=== PATIENT | female | born 2000 ===

== ENCOUNTER 2023-03-09 10:44 | Outpatient (CLI) | payer OTHER, MEDICAID, SELFPAY | END 2023-03-09 10:45 | disposition home or self-care (01) | PROVIDERS: Visit Provider Advanced Practice Midwife | DX: Z34.93 Encounter for supervision of normal pregnancy, unspecified, third trimester (principal) | CPT/HCPCS: 86592 ==

== ENCOUNTER 2023-04-20 14:57 | Outpatient (CLI) | payer OTHER, SELFPAY ==
--- NOTE | 2023-04-20 15:00 | CRLHL7_ITS ---
For Patients: As a result of the Century Cures Act, medical imaging exams and procedure reports are released immediately into your electronic medical record. You may view this report before your referring provider. If you have questions, please contact your health care provider. OB ULTRASOUND FOLLOWUP 04/20/2023 THIEN by LMP: _05/28/2023. GA: _34 w, 4d. Single. INDICATION: Followup growth. Size < dates. CERVIX: Not visualized. POSITIONING: Vertex. AMNIOTIC FLUID: 5.3 cm. PLACENTA: Technique: Transabdominal. PLACENTA POSITION: Anterior. DOPPLER: heart rate: 149 bpm. Biometry: BPD: 8.3 cm. 33 w, 3 d, 18 percent. HC: 30.0 cm. 33 w, 2 d, <3 percent. AC: 30.6 cm. 34 w, 4 d, 54 percent. FL: 6.1 cm. 31 w, 4 d, <3 percent. FL/AC ratio: 20 percent. HC/AC ratio: 1.0. EFW: 2197 g. Weight: 4 lbs, 13 oz. age by this US: 33 w, 4 d. THIEN by this US: 06/06/2023. Percentile by THIEN: 17 percent. IMPRESSION: Single live intrauterine gestation at 33 weeks 4 days. THIEN 06/06/2023. Estimated weight 2197 grams which lies at the 17th percentile. Ania Felipe M.D. Diagnostic/Breast Radiologist [email or web address] Transcribed: 12:36 pm DW/Dictated by: Ania Felipe MD @ 04/21/2023 7:39:00 AM (Electronically Signed)
== END 2023-04-20 14:58 | disposition home or self-care (01) ==
LOC: US 14:58
PROVIDERS: Visit Provider Advanced Practice Midwife
DX: O36.63X0 Maternal care for excessive fetal growth, third trimester, not applicable or unspecified (principal); Z3A.33 33 weeks gestation of pregnancy
CPT/HCPCS: 76816

== ENCOUNTER 2023-04-29 11:19 | Outpatient (CLI) | payer OTHER, SELFPAY ==
[2023-04-30 11:55] LABS: Strep B DNA Probe NEGATIVE (Negative)
[2023-04-30 12:09] LABS: Strep B Pen/Amox Allergy No
== END 2023-04-29 11:20 | disposition home or self-care (01) ==
PROVIDERS: Visit Provider Advanced Practice Midwife
DX: Z34.93 Encounter for supervision of normal pregnancy, unspecified, third trimester (principal); Z3A.35 35 weeks gestation of pregnancy
CPT/HCPCS: 82565; 82570; 84156; 84450; 84460; 87081; 87653

== ENCOUNTER 2023-05-13 11:14 | Outpatient (CLI) | payer OTHER, SELFPAY ==
--- NOTE | 2023-05-13 11:15 | CRLHL7_ITS ---
For Patients: As a result of the Cures Act, medical imaging exams and procedure reports are released immediately into your electronic medical record. You may view this report before your referring provider. If you have questions, please contact your health care provider. INDICATION: MEASURING SMALL FOR GESTATIONAL AGE TECHNIQUE: Real time nassar scale imaging of the fetus was performed. Doppler evaluation of the umbilical artery also performed. COMPARISON: 04/20/2023 FINDINGS: Sonographic imaging demonstrates a single living intrauterine gestation. Fetus demonstrates a regular cardiac rate of 149 beats per minute. Fetus has a vertex position. The placenta lies anteriorly. Amniotic fluid volume appears lower limits of normal and there is a single deepest pocket of 4.7 cm. HUBERT 8.9 cm. The estimated weight is 2453gm which lies at the 3rd %. On the prior OB ultrasound dated 04/20/2023 the estimated weight was at the 17th percentile. BPD, HC, FL less than 3rd percentile. AC 3rd percentile. Umbilical artery S/D ratio 2.5. Absent gross body movements, tone and respiratory activity. IMPRESSION: Biophysical profile 09/23. Ordering provider immediately notified by the teachers' assistant at 12 p.m. 05/13/2023. Sonographic gestational age 34 weeks 3 days and sonographic due date of 06/21/2023. Sonographic age 24 days behind the clinical age. Estimated weight 3rd percentile. BPD/HC/FL less than 3rd percentile. Abdominal circumference 3rd percentile. Dictated by Gavin Argueta MD @ 05/13/2023 12:32:24 PM (Electronically Signed)
== END 2023-05-13 11:15 | disposition home or self-care (01) ==
LOC: US 11:15
PROVIDERS: Visit Provider Advanced Practice Midwife
DX: O36.5930 Maternal care for other known or suspected poor fetal growth, third trimester, not applicable or unspecified (principal); Z3A.37 37 weeks gestation of pregnancy
CPT/HCPCS: 76816; 76819; 76820

== ENCOUNTER 2023-05-13 12:05 | Inpatient (IN) | payer OTHER, SELFPAY ==
[2023-05-13] VITALS (14 sets, daily range): BP systolic 102–139; BP diastolic 62–81; PULSE 61–120; RESP 16–18; TEMP 36.9–37.3; O2SAT 90–100; BMI 28.3
--- NOTE | 2023-05-13 12:34 | P.LDBA_ITS ---
Subjective History of Present Illness Narrative: Unique is being admitted to Labor and Delivery for induction of labor for severe IUGR, 3%ile. She is a 23 year old at 37 6/7 weeks gestation. She had a growth US today with IUGR in the 3rd percentile, normal dopplers with BPP 2/8, 410 with reactive NST. Patient partner, Tristan, is a tower truck driver and currently in [place]. He has been made aware and has plans to be on his way here. She desires to delay IOL until he is here. Her full history and physical was dictated by Cheryl Ortiz CNM on 05/06/2023. Please see this for details. Specific Issues/Plans Partner: Tristan H&P done 05/06/2023 by Cheryl Ortiz CNM 1. Hx depression, anxiety, and PTSD Has been on medications in past, none current no therapy declined at first visit ALISE: 12 PHQ 9: 13?on 11-09 2. Rubella Non immune needs vaccine PP 3. IUGR 3% at 37.6 weeks Measuring small for dates: Growth US at 34.4: 17%. Growth US at 37.6: 3% w/ BPP 2/8, IOL recommended today COVID: declines Flu: declines TDAP: Given 03/23/23 Records reviewed from [facility]: OB Labs 10/19/22:??? Blood type: O+, antibody screen negative.??? Hgb 12.6??? Platelets (234)??? Rubella: NON Immune RPR: non-reactive??? HBsAg: negative??? Hep C neg HIV: negative??? urine culture: mixed tim Pap (07/31/21): negative??? THIEN by LMP 05/28/23, confirmed by u/s NOB 10/19/22 -declined carrier and genetic screening 10/19/22 viability u/s. 8.3 weeks by LMP, 8.6 by u/s. 10/05/22 viability u/s. 6.3 weeks by LMP, 6.2 weeks by u/s. OB - Problem Based A/P Additional Plan (1) Encounter for induction of labor: Status: Acute (2) IUGR (intrauterine growth restriction) affecting care of mother: Status: Acute (3) Depression, major, recurrent: Status: Acute (4) PTSD (post-traumatic stress disorder): Status: Acute (5) Anxiety: Status: Acute Plan ASSESSMENT:? 23 at 37 6/7 weeks gestation? complicated by:?IUGR 3%ile (dx 05/13/2023) with BPP 4/10, depression/anxiety/PTSD, rubella non-immune Labor type: Induced, not in labor? Category 1 FHR pattern.?? Labor complicated by: IUGR GBS negative? ? PLAN:? 1. Routine intrapartum cares as ordered. Discussed cervical exam and likely cervical ripening vs pitocin. Patient prefers to wait for her significant other to arrive. Unless status changes, we will wait for him to arrive before starting IOL measures. 2. Monitoring per policy, continuous 3. Planning unmedicated . Desires water , not a candidate due to IUGR. Hep C negative. Candidate for analgesia of choice.?? 4. Patient encouraged to reposition and ambulate to promote physiologic labor and .? 5. Dr. Banks made aware of patient and plan. He agrees with plan. Peds made aware of patient and will plan to be in attendance for delivery. 6. Anticipate ? Delivery/Labor/Induction Plan Plan: induction OB Exam Physical Exam Vital signs: Pulse BP Pulse Ox 76 139/81 100 05/13/23 12:12 05/13/23 12:12 05/13/23 12:15 Narrative: Vitals Reviewed Constitutional:? Alert and oriented x3 HEENT:? Normocephalic, atraumatic Neck:? Supple Lungs:? Clear to auscultation bilaterally Heart:? Regular rate and rhythm, no murmur, rub or gallop Abdomen:? Soft, nontender, and gravid. Vertex by Dionicio's, confirmed with cervical exam. Extremities:? No edema or erythema Cervix: Deferred, will check once patient settled NST: 135 bpm/moderate variability/15x15 accelerations/no decelerations/irregular contractions, pt not feeling Detailed Labor and Delivery Exam Patient Gravid: Yes
[2023-05-13 13:01] LABS: Basophils Absolute Auto 0.03 K/uL (0.00-0.30); Basophils Percent Auto 0.3 % (0.0-3.0); Eosinophils Absolute Auto 0.08 K/uL (0.00-0.50); Eosinophils Percent Auto 0.9 % (0.0-7.0); Hematocrit 39.9 % (33.0-51.0); Hemoglobin* 13.1 gm/dL (12.0-16.0); Immature Granulocytes Abs Auto 0.05 K/uL (0.00-0.30); Immature Granulocytes Pct Auto 0.6 %; Lymphocytes Percent Auto 16.1 % (20-44); Mean Corpuscular HGB Conc 33 gm/dL (32-36); Mean Corpuscular Hemoglobin 27 pg (26-34); Mean Corpuscular Volume 84 fL (80-100); Monocytes Percent Auto 7.8 % (0.0-11.0); Neutrophils Percent Auto 74.3 % (42.0-72.0); Platelet Count* 201 K/uL (140-440); RDW Coefficient of Variation % 13.1 % (11.5-15.5); Red Blood Count 4.78 m/uL (4.00-5.20); White Blood Count* 9.09 K/uL (4.50-11.00)
[2023-05-13 13:02] LABS: Slide Review Reflex No
[2023-05-13] MEDS: miSOPROStoL 25 MCG/0.25 TABLET VAGINAL (18:31)
[2023-05-13] MEDS: LACTATED RINGERS 1000 ML 1,000 ML 1125 ML IV (22:08)
[2023-05-13] MEDS: LACTATED RINGERS 1000 ML 1,000 ML 125 ML IV (23:01)
--- NOTE | 2023-05-13 23:16 | PM.OBPNL ---
Subjective Date Seen: 05/13/23 Narrative: Unique is a at 37 5/7 weeks gestation. She is being induced for IUGR in the 3rd percentile with BPP of 2/8 or 4/10. She received a dose of cytotec at about 1830. Patient was resting when spontaneous deceleration was noted on monitor. RN at bedside with no notable return in FHR. CNM to bedside, no audible FHT. Patient positioned to hands and knees with intermittent FHR in the 50-70's were audible. Fluid bolus was started. Minerva palm called. MD notified, OR team called, and Peds called. Patient brought to OR, FHR slowly returned to 140's then to 160-180's. Prolonged deceleration of 8 minutes noted. Objective Vital Signs: Last Vital Signs Temp 99.1 F 05/13/23 18:29 Pulse 71 05/13/23 18:30 Resp 16 05/13/23 18:29 BP 138/62 05/13/23 18:30 Pulse Ox 100 05/13/23 22:37 Pelvic Exam Dilation (cm): 1 Plan Plan: Minerva palm called, remote from vaginal delivery. Dr. Banks at bedside and to assume care for section.
--- NOTE | 2023-05-13 23:47 | P.OBPRC_ITS ---
Procedure Time Seen by Provider: 23:47 Date of procedure: 05/13/23 Pre-op diagnosis: Prolonged heart deceleration, growth restriction Post-op diagnosis: same Procedure Done: Global Will [facility] bill your pro fee for this procedure?: Yes Blood Loss Measurement Type: EBL Bakri Used: No IV fluids (mL): 1,400 Urine Output (mL): 250 Surgeon: Fantasma Banks MD Anesthesia type: Spinal Findings: Viable female with Apgars of 8 and 9 at 1 and 5 minutes, weight of 5 lb 11 oz Normal fallopian tubes and ovaries bilaterally Procedure Name: Primary low-transverse section Procedure Description: Indication: Patient is a 23-year-old female G 1 P 0 at 37 weeks 6 days gestation who presented to [facility] Center under the care of the CN service for induction of labor secondary to new onset growth restriction less than 3rd percentile and nonreassuring status with BPP 4/10. Patient received misoprostol for cervical ripening however during this the heart rate had a spontaneous deceleration to 70 beats per minute for 8 minutes, followed by return to baseline. Given the diagnosis of growth restriction and likely placental insufficiency, further attempts toward vaginal delivery were deemed not to be safer fetus, and decision was made to proceed with delivery via C-se ction. We discussed the risks, benefits, and alternatives to the procedure including the following: Bleeding, infection, injury to other adjacent organs, VTE, injury to fetus. Patient's questions were answered and she provided written informed consent to proceed. Technique: Patient was taken to the operating room where she was placed in the dorsal supine position with a leftward tilt. Antibiotics including cefazolin were administered. A Jha catheter was placed in her bladder. Patient was then prepped and draped in the usual sterile fashion. The patient received spinal anesthesia which was noted to be adequate prior to skin incision. A 10 blade scalpel used to create a Pfannenstiel incision 2 cm superior to the pubic symphysis and carried through the subcutaneous tissue to the underlying fascia. The fascia was then incised in the midline, the subcutaneous fat cleared from the fascia along the length of the skin incision, and then the fascial incision extended laterally with digital finger fracture. The rectus abdominus muscles were in the midline with digital pressure and the peritoneum entered with blunt finger pressure. The entire incision was then extended with blunt pressure. Aplastic double ring retractor system was placed, and the anterior abdominal wall manually swept with no visceral organs palpated or entrapped by the ring. A 10 blade scalpel was used to create a low-transverse incision in the uterus superior to the bladder flap, and manual pressure applied to the cranial and caudal aspects of the incision for extension. The fetus was delivered atraumatically. The umbilical cord was clamped, cut, and the handed off to the pediatric care team for resuscitation. A section of cord was clamped and held for gases if needed. The placenta was delivered spontaneously with gentle traction on the umbilical cord and external massage of the uterus. A lap sponge was used to clear the uterine cavity of all clots and debris. The hysterotomy was examined and no extension noted. The hysterotomy was repaired with a running locked suture of 0 Vicryl. Hemostasis was noted. The remainder of the abdomen and pelvis was swept clear of all blood and clot, the pericolic gutters were bilaterally examined and noted to be free of fluid and clot. The plastic ring retractor was removed from the abdomen and a bladder blade placed to examine the hysterotomy, which remained hemostatic. The bladder flap and rectus muscles were examined and noted to be hemostatic. The fascial incision was closed with a running suture of 0 Vicryl. The subcutaneous tissue was less than 2 cm in depth and did not require reapproximation. Warm saline was used for irrigation and hemostasis of the subcutaneous tissue controlled with electrocoagulation. The skin incision was closed with a running subcuticular stitch of 4-0 Vicryl, Steri- Strips were placed over the incision, and a Mepilex bandage placed. External massage of the uterus was performed to clear the uterus and vagina of all blood and clot. Instrument, sponge, and needle counts were correct x2. The patient was transported to the room with for recovery in stable condition. EBL for the surgery was 467 mL. Complications: None Condition: stable Disposition: floor OB Delivery Proc Additional Procedures Tubal Ligation at the time of : No Other: No
--- NOTE | 2023-05-13 23:53 | P.OBCN_ITS ---
OB - CN: HPI Date of Consult Time Seen by Provider: 22:30 Date Seen: 05/13/23 Patient: [facility] Patient Consult date: 05/13/23 Requesting Physician: Edelmira Edward CNM Primary Care Provider: Not a Local Provider Consult Narrative Reason for consult: nonreassuring FHTs Narrative: The patient is a 23 year old G 1 P 0 at 37 weeks 6 days gestation that was admitted to the Center on 05/13/23 for induction of labor by the [facility] service secondary to new onset FGR less than 3% and BPP 4/10. Patient received misoprostol cervical ripening and at 2215 had a spontaneous heart rate deceleration to 70 beats per minute for 8 minutes, followed by recovery. During this time, a code white was called and patient was transferred to the OR in preparation for possible emergency delivery. Upon my arrival, the heart rate was back to normal baseline. History of Present Dating criteria: based on LMP care: good care Ultrasounds: normal 1st trimester US and normal mid trimester US complications comment: growth restriction at 3rd percentile Medical Complications: History of major depression, anxiety History History 1 Elective abortions 0 Para 1 Spontaneous abortions 0 Hx # Term Pregnancies 0 Ectopic pregnancies Hx # Pregnancies 0 Multiple births Number of Living Children 0 Labs Blood type: O (+) positive Rubella: immune RPR/VDLR: nonreactive GBS status: negative HBsAG: negative OB Labs: Lab Assessment Start: 05/13/23 12:16 Freq: ONCE Status: Active Protocol: PC.OBGBS Activity Type Activity Date Activity User E-sign Co-sign Detail Recorded Client Recorded Date Recorded By Document 05/13/23 12:57 MMB [id number] 05/13/23 12:58 MMB 05/13/23 12:57 Lab Assessment GBS Status negative GBS Additional Criteria None No Treatment Needed OK Are Labs Available Yes Maternal Blood Type O Maternal RH Factor Positive Evaluate Maternal Rubella Immune Status Non-Immune Hepatitis B Surface Antigen Negative Maternal HIV Status Negative Maternal Syphillis (RPR) Status Negative Review of Systems Status of ROS: Reports: 6 or more systems reviewed and unremarkable except as noted in History and below [facility] Medical History Syncope ?R55 - Syncope and collapse (ICD-10) Surgical History [place] teeth extracted ?K08.409 - Partial loss of teeth, unspecified cause, unspecified class (ICD- 10) Family History Mother Thyroid disease Father Acute rheumatic arthritis Sister Gastrointestinal complaints Social History What is your current living situation?: I presently have a place to live Problems where you live: no known problems In the past 12 months, utilities in danger of being shut off: no In past 12 months, lack of transportation kept you from medical appts, meetings, work, or getting things needed for daily living: no In the past 12 mos, have been you worried that your food would run out before you had money to buy more?: never true In the past 12 mos, the food you bought just didn't last and you didn't have mon ey to buy more?: never true Smoking Status: Former smoker How often does anyone, including family, friends and others, physically hurt you : never How often does anyone, including family, friends and others, insult or talk down to you: never How often does anyone, including family, friends and others, threaten you with harm: never How often does anyone, including family, friends and others, scream or curse at you: never Little interest or pleasure in doing things: several days Feeling down, depressed, or hopeless: more than half the days Meds Home Medications and Allergies Home Medications Medication Instructions Recorded Confirmed Type prenat.vits,braden,nez-poxi-wjiab 1 tab PO QDAY 11/09/22 05/13/23 History promethazine 25 mg tablet 25 mg PO Q6H PRN 11/09/22 05/13/23 History Allergies Allergy/AdvReac Type Severity Reaction Status Date / Time amoxicillin Allergy Mild Headache Verified 05/13/23 10:56 citalopram Allergy Mild Headache Verified 05/13/23 10:56 ibuprofen Allergy Mild Unknown Verified 05/13/23 10:56 Penicillins Allergy Mild Rash Verified 05/13/23 10:56 OB - H&P: Exam Physical Exam: Vital signs: Temp Pulse Resp BP Pulse Ox 99.1 F 71 16 138/62 100 05/13/23 18:29 05/13/23 18:30 05/13/23 18:29 05/13/23 18:30 05/13/23 22:37 Constitutional: Constitutional: moderate distress and cooperative Routine Abdominal Exam: Abdominal: Present soft; Absent guarding or tenderness Comments: Gravid uterus Detailed Labor and Delivery Exam: Patient Gravid: Yes Dilation (cm): 0 Effacement (%): 30 Cervix position: mid Consistency: medium Tachysystole: No Contraction intensity: Mild Fetus (Single): Station: -2 Amniotic Membrane Status: intact Heart Rate Baseline: 160 Monitor Accelerations: Absent Monitor Decelerations: Prolonged Insurance Sales Specialist Variability: Moderate (6-25) OB - Results Labs Labs: Short CBC 05/13/23 Range/Units 12:55 WBC 9.09 (4.50-11.00) K/uL Hgb 13.1 (12.0-16.0) gm/dL Hct 39.9 (33.0-51.0) % Plt Count 201 (140-440) K/uL OB - CN: A/P Assessment and Plan (1) Encounter for induction of labor: Status: Acute (2) IUGR (intrauterine growth restriction) affecting care of mother: Status: Acute (3) Depression, major, recurrent: Status: Acute (4) PTSD (post-traumatic stress disorder): Status: Acute (5) Anxiety: Status: Acute (6) Prolonged heart deceleration: Status: Acute Assessment and Plan: Discussed risk for recurrence and risk to the fetus of hypoxia, given FGR and remote from delivery status, recommend proceeding with delivery via section at this time.
[2023-05-14] VITALS (39 sets, daily range): BP systolic 90–151; BP diastolic 49–90; PULSE 55–76; RESP 16–18; TEMP 36.3–37.1; O2SAT 97–100
--- NOTE | 2023-05-14 | P.ANES_ITS ---
Anesthesia Charges Start Date/Time Anesthesia Start Date: 05/13/23 Anesthesia Start Time: 22:15 Stop Date/Time Anesthesia Stop Date: 05/13/23 Anesthesia Stop Time: 23:50 Summary Emergency: [employer]
--- NOTE | 2023-05-14 | P.NB_ITS ---
Nerve Block Nerve Block Time Seen by Provider: 23:45 Date Seen: 05/13/23 Type of block requested by surgeon for post-operative analgesia: TAP Side: bilateral Time out performed: Yes Verification of patient name: Yes Verification of date of : Yes Site marking: site marked Name of person performing procedure: Jorge Maurice Continuous monitoring Was continuous monitoring of O2 sat, B/P, ekg monitor tech, recorded every 15 minutes?: Yes Procedure Checklist: sterile prep, needles and gloves Ultrasound guided. Images saved: Yes Medications given in 5ml increments after negative aspiration: Marcaine %: 0.25 mL: 30 Needle gauge: 20 and Exparel mL: 10 Needle gauge: 20 Patient tolerated procedure well: Yes Additional comments: Injected in 5ml increments after negative aspiration Block Charges Block Charge (with Pro Fee): TAP Bilateral Use of Ultrasound Machine for Block: Yes- US Guidance/pain block
[2023-05-14] MEDS: OXYTOCIN 30 unit/500 ML in NS 30 UNIT/500 ML BAG 300 UNIT IVPB (02:28)
[2023-05-14] MEDS: ACETAMINOPHEN INJ 1,000 MG/100 ML VIAL 400 MG IVPB (03:12)
[2023-05-14 07:08] LABS: Hemoglobin* 10.5 gm/dL (12.0-16.0)
[2023-05-14] MEDS: LANOLIN CREAM 1 APPLIC TOPICAL (07:27)
--- NOTE | 2023-05-14 08:12 | PM.OBPNVD1 ---
OB - PN:Subj Subjective Time Seen by Provider: 08:12 Date Seen: 05/14/23 Interval history: Unique is a 23 y.o. who was admitted to L & D for IOL for severe IUGR and BPP 09/23.? She had an primary emergency for intolerance of labor.? ? ? Narrative: The patient feels well.? The pain is mostly controlled with current medications, states it is better when she is not moving.? She has no new complaints.? She is breast feeding and reports things are going well.? the patient has done well.? Vitals have been stable.? She has remained afebrile.? Has a good appetite, is tolerating a general diet.? Her garcia catheter has not yet been removed this AM.? She is passing gas and has not had a bowel movement.? She is ambulating and denies any dizziness.? Has Small amount of rubra lochia.? OB - PN: Obj Exam Physical Exam: Vital signs: Temp Pulse Resp BP Pulse Ox 98.4 F 57 L 16 127/73 100 05/14/23 02:30 05/14/23 02:30 05/14/23 06:40 05/14/23 02:30 05/14/23 02:30 Narrative: VSS.? Afebrile? GENERAL APPEARANCE:? Somewhat flat affect, but does also appear and states she is tired, alert, no distress? MOOD:? appropriate? HEENT: normocephalic, neck supple, full ROM? CHEST:? Symmetrical chest wall movement.? Normal respiratory effort.? Clear to auscultation? HEART:? regular rate and rhythm? ABDOMEN:? soft, non-tender. Uterine fundus is firm, 1 below Umbilicus, Midline and is appropriate for the stage of recovery.? Bowel sounds present.? EXTREMITIES:? normal and trace edema? SKIN: warm, dry.? Dressing on, dry/intact. Small areas of shadowing noted and previously marked.? No signs of infection noted.? Urinary Catheter Management: garcia: Cath placed during this visit: yes Urethral indwelling: Yes Reason for continuing: surgical procedure Insertion date: 05/13/23 Insertion time: 10:47 OB - PN: Obj Data Labs Labs: Laboratory Results - last 24 hr 05/13/23 05/14/23 12:55 06:55 WBC 9.09 RBC 4.78 Hgb 13.1 10.5 L Hct 39.9 MCV 84 MCH 27 MCHC 33 RDW Coeff of Gabriela 13.1 Plt Count 201 Neut % (Auto) 74.3 H Lymph % (Auto) 16.1 L [place] % (Auto) 7.8 Eos % (Auto) 0.9 Baso % (Auto) 0.3 Neut # (Auto) 6.80 Lymph # (Auto) 1.50 [place] # (Auto) 0.70 Eos # (Auto) 0.08 Baso # (Auto) 0.03 Abs Immat Gran (auto) 0.05 Imm/Tot Granulo (auto) 0.6 Blood Type O Positive Antibody Screen NEGATIVE OB - PN: A/P Delivery Assessment and Plan (1) Status post primary low transverse section: Status: Acute (2) Lactating mother: Status: Acute (3) IUGR (intrauterine growth restriction) affecting care of mother: Status: Acute (4) Depression, major, recurrent: Status: Acute (5) PTSD (post-traumatic stress disorder): Status: Acute (6) Anxiety: Status: Acute Plan day: 1 Plan: routine care Comments: Assessment/Plan? G 1 P 1 status post uncomplicated primary .? ?? 1.? Continue route PP cares? 2.? .? May see if desired? 3.? Anticipate discharge home tomorrow or the following day per pt preference? 4.? Mild acute anemia.? 5. 1 elevated BP. Will continue to monitor, labs if they become elevated again. 6. Hx of anxiety, depression and PTSD. Increased risk for PP depression & anxiety, especially w/ emergency .
[2023-05-14] MEDS: ACETAMINOPHEN 500 MG TABLET 1000 MG PO ×3 (09:17→22:10)
[2023-05-14] MEDS: DOCUSATE SODIUM 100 MG CAPSULE PO (09:18)
--- NOTE | 2023-05-14 11:26 | PM.OBPNVD1 ---
OB - PN:Subj Subjective Time Seen by Provider: 11:26 Date Seen: 05/14/23 Interval history: Unique is a 23 y.o. who was admitted to L & D for IOL for severe IUGR and BPP 09/23.? She had an primary emergency for prolonged heart rate deceleration during induction process of cervical ripening.? ? Patient comments OB post-: no complaints, tolerating diet and flatus present [place] infant status: and doing well feeding status: exclusively Narrative: Patient reports getting some sleep overnight between feedings, but still tired this morning. Pain moderately controlled but will be difficult due to allergy to ibuprofen. Garcia in place and will be removed this morning and will she is tolerating a regular diet without nausea. She has been up out of bed. Denies any headache, chest pain, shortness of breath. OB - PN: Obj Exam Physical Exam: Vital signs: Temp Pulse Resp BP Pulse Ox O2 Del Method 98.2 F 76 16 112/70 97 Room Air 05/14/23 08:00 05/14/23 08:00 05/14/23 08:00 05/14/23 08:00 05/14/23 08:00 05/14/23 08:00 Constitutional: Constitutional: no acute distress and cooperative Routine Abdominal Exam: Abdominal: Present distended and soft; Absent guarding or rebound Fundus: Present firm Comments: Bandage in place over incision with minimal blood showing, incision soft Wound Management: Method: suture Drains: none Examination: Present dressed Urinary Catheter Management: garcia: Cath placed during this visit: yes Urethral indwelling: Yes Reason for continuing: surgical procedure Insertion date: 05/13/23 Insertion time: 10:47 OB - PN: Obj Data Labs Labs: Laboratory Results - last 24 hr 05/13/23 05/14/23 12:55 06:55 WBC 9.09 RBC 4.78 Hgb 13.1 10.5 L Hct 39.9 MCV 84 MCH 27 MCHC 33 RDW Coeff of Gabriela 13.1 Plt Count 201 Neut % (Auto) 74.3 H Lymph % (Auto) 16.1 L [place] % (Auto) 7.8 Eos % (Auto) 0.9 Baso % (Auto) 0.3 Neut # (Auto) 6.80 Lymph # (Auto) 1.50 [place] # (Auto) 0.70 Eos # (Auto) 0.08 Baso # (Auto) 0.03 Abs Immat Gran (auto) 0.05 Imm/Tot Granulo (auto) 0.6 Blood Type O Positive Antibody Screen NEGATIVE OB - PN: A/P Delivery Assessment and Plan (1) Status post primary low transverse section: Problem details: Recovering well Status: Acute Assessment and Plan: Continue routine postoperative and care (2) Lactating mother: Status: Acute (3) IUGR (intrauterine growth restriction) affecting care of mother: Problem details: also SGA Status: Acute Assessment and Plan: Peds following (4) Depression, major, recurrent: Problem details: Mood currently stable Status: Acute Assessment and Plan: Declines any treatment at this time, continue monitor symptoms (5) PTSD (post-traumatic stress disorder): Status: Acute (6) Anxiety: Status: Acute Plan 23-year-old 001 postoperative day 1 status post primary low-transverse for prolonged heart deceleration remote from delivery in the setting of FGR Plan day: 1 Plan: routine care Comments: Plan discharge home postop day 3-4
[2023-05-14] MEDS: OXYCODONE 5 MG TABLET PO (13:15)
[2023-05-14] MEDS: ONDANSETRON 2 MG/ML inj 4 MG IVP (14:22)
[2023-05-15] MEDS: OXYCODONE 5 MG TABLET PO ×5 (00:21→20:27)
[2023-05-15] MEDS: ACETAMINOPHEN 500 MG TABLET 1000 MG PO ×3 (04:26→17:56)
[2023-05-15 07:28] VITALS: BP 122/78; PULSE 77; RESP 16; TEMP 36.9; O2SAT 97
[2023-05-15] MEDS: DOCUSATE SODIUM 100 MG CAPSULE PO (07:33)
--- NOTE | 2023-05-15 10:56 | PM.OBPNVD1 ---
OB - PN:Subj Subjective Time Seen by Provider: 08:00 Date Seen: 05/15/23 Interval history: Unique is a 23 y.o. who was admitted to L & D for IOL for severe IUGR and BPP 09/23.? She had an primary emergency for prolonged heart rate deceleration during induction process of cervical ripening.? ? Patient comments OB post-: no complaints, pain well controlled, tolerating diet and flatus present [place] status: and doing well feeding status: exclusively Narrative: Some sleep overnight, plans more during day between feedings. Some pain on right side of incision but medications doing well to control even without NSAIDS. Ambulating, voiding. OB - PN: Obj Exam Physical Exam: Vital signs: Temp Pulse Resp BP Pulse Ox O2 Del Method 98.4 F 77 16 122/78 97 Room Air 05/15/23 07:28 05/15/23 07:28 05/15/23 07:28 05/15/23 07:28 05/15/23 07:05/15/23 07:28 Constitutional: Constitutional: no acute distress and cooperative Routine Abdominal Exam: Abdominal: Present distended; Absent guarding, mass or rebound Fundus: Present firm Comments: Appropriately tender at surgical site Wound Management: Method: suture Drains: none Examination: Present dressed Comments: Increased tenderness at right corner of incision Urinary Catheter Management: garcia: Cath placed during this visit: yes, but has since been removed by the nurse Urethral indwelling: Yes Reason for continuing: surgical procedure Insertion date: 05/13/23 Insertion time: 10:47 Removal date: 05/14/23 OB - PN: A/P Delivery Assessment and Plan (1) Status post primary low transverse section: Problem details: Recovering well Status: Acute (2) Lactating mother: Status: Acute (3) IUGR (intrauterine growth restriction) affecting care of mother: Problem details: also SGA Status: Acute (4) Depression, major, recurrent: Problem details: Mood currently stable Status: Acute (5) PTSD (post-traumatic stress disorder): Status: Acute (6) Anxiety: Status: Acute Plan 23yo POD#2 s/p PLTCS for Cat 2 FHT remote from delivery, recovering appropriately Plan day: 2 Plan: routine care Comments: Anticipate discharge home tomorrow, POD#3
[2023-05-15 16:50] VITALS: BP 121/74; PULSE 76; RESP 14; TEMP 36.7; O2SAT 97
[2023-05-15] MEDS: ONDANSETRON ODT 4 MG TAB PO (21:41)
[2023-05-16] MEDS: OXYCODONE 5 MG TABLET PO ×4 (00:06→12:32)
[2023-05-16] MEDS: ACETAMINOPHEN 500 MG TABLET 1000 MG PO ×3 (00:06→12:31)
[2023-05-16 00:09] VITALS: BP 127/76; PULSE 77; RESP 14; TEMP 36.8; O2SAT 97
[2023-05-16 07:45] VITALS: BP 125/87; PULSE 75; RESP 16; TEMP 36.8; O2SAT 97
[2023-05-16] MEDS: DOCUSATE SODIUM 100 MG CAPSULE PO (08:22)
--- NOTE | 2023-05-16 09:50 | P.DS_ITS ---
DS: Providers Provider Time Seen by Provider: 09:50 Date Seen: 05/16/23 Date of admission: 05/13/23 12:05 Primary care physician: Not a Local Provider Admitting Clinician: Edelmira Edward CNM Consults: Obstetrics Ovens Supervisor Physician on discharge: Edelmira Edward CNM Date of Discharge: 05/16/23 DS: Diagnosis Discharge Diagnosis (1) Lactating mother: Status: Acute (2) Status post primary low transverse section: Status: Acute Problem details: Recovering well (3) Prolonged heart deceleration: Status: Acute (4) Encounter for induction of labor: Status: Acute (5) IUGR (intrauterine growth restriction) affecting care of mother: Status: Acute Problem details: also SGA (6) Depression, major, recurrent: Status: Acute Problem details: Mood currently stable (7) Anxiety: Status: Acute Exam Const: Vital Signs, click to edit/add: Vital Signs - 24 hr 05/15/23 16:50 05/16/23 00:09 05/16/23 07:45 Temperature 98.1 F 98.3 F 98.2 F Pulse Rate [Pulse Oximeter] 76 77 75 Respiratory Rate 14 14 16 Blood Pressure [Ri ght Arm] 121/74 127/76 125/87 Pulse Oximetry 97 97 97 Oxygen Delivery Me thod Room Air Room Air Room Air Common normals: no apparent distress and oriented x3 General appearance: cooperative and comfortable Orientation/consciousness: Yes awake Resp: Common normals: normal respiratory effort Effort & inspection: able to speak in complete sentences GI: Common normals: soft to palpation Palpation: soft; no guarding and not rigid Percussion: tympanic to percussion Other: Appropriate tenderness to palpation at surgical site, incision clean, dry, intact, Steri-Strips in place, no drainage, no erythema, 1 cm x 3 cm dermal mass at superior right aspect of incision likely seroma, no warmth Extremity: Common normals: normal to inspection General: edema; no calf tenderness Neuro: Common normals: oriented x3 Sensorium/orientation: awake Psych: Common normals: mental status grossly normal, cooperative, affect normal and speech normal Speech: normal speech OB - DS: Summary Hospital Course Hospital Course: The patient is a 23 year old now G 1 P 1001 who was admitted to the Center @ 38w2 GA on 05/13/23 for induction of labor by the CNM service secondary to new onset FGR 3% and BPP 4/10. During the cervical ripening process the fetus had a heart rate deceleration to 70 beats per minute for 8 minutes followed by recovery to baseline. Due to the status and remote from delivery, decision was made to proceed with section. She had an uncomplicated delivery, see operative note for details. She delivered a viable female . She is breast feeding. the patient has done well. She is ambulating without difficulty, pain well controlled on oral pain medications, voiding spontaneously, passing flatus, eating a regular diet without nausea, mood stable. Peripartum Data Infant delivery method: Primary C/S; Labored Procedures: Procedures Operation Date: 05/13/23 22:30 Actual Procedure Side Surgeon p Section Fantasma Banks MD complications: none Gender: Female Discharge Plan: Home Status at Discharge Functional status at discharge: independent ambulation Overall status at discharge: patient is progressing back to baseline Time Spent with Patient Time attestation: Total time spent providing and/or coordinating discharge services: Time spent: Greater than 30 minutes Discharge Plan Discharge Disposition: Home, Self-Care Date of Admission: 05/13/23 12:05 Attending Provider on Discharge: Fantasma Banks Primary Care Provider: Provider,Not a Local Condition: Stable Anticipated Discharge Date/Time: 05/16/23 00:59 Discharge Medications: New acetaminophen 500 mg Tablet 1,000 mg PO Q6H MDD 4000 mg PRN (Reason: Pain) 14 Days Qty: 30 0RF docusate sodium 100 mg Capsule 100 mg PO DAILY 90 Days Qty: 90 3RF oxycodone 5 mg Tablet 5 - 10 mg PO Q4H PRN (Reason: Pain) 6 Days Qty: 20 0RF Continued prenat.vits,braden,[id number]-[id number] Tablet 1 tab PO QDAY Discontinued promethazine 25 mg tablet 25 mg PO Q6H PRN Discharge Orders: Discharge Order (Routine); Ordered 05/16/23 Ordered By: Fantasma Banks Patient Education: Depression (DC), OB Over the Counter Medication Information, OB /Breast Feeding Additional Instructions: Schedule follow-up appointment in 1 week and 6 weeks for care No lifting greater than 15 lb or exercise or heavy activity for 6 weeks, no driving while using opioid medication or until you can stomp on the brakes without hesitating because of pain, nothing in the vagina for 6 weeks: No sex, no tampons, use only a pad. Call for vaginal bleeding soaking more than 1 pad per hour for more than 2 hours, fevers 100.4F or higher for more than 1 hour, foul-smelling discharge, increasing pain and cramping not controlled by pain medications, persistent nausea vomiting, concerns with the incision (bleeding, pus, opening up, becoming hard, red, tender), signs of preeclampsia including unrelenting headache, spots or sparkles in her vision, constant upper abdominal pain, signs of heart conditions including while at rest persistent dizziness, shortness of breath, chest pressure, chest pain, palpitations, signs of mood disorders including persistent feelings of sadness, hopelessness, depression, anxiety for more than 2 weeks. Activity Level: No strenuous activity Discharge Diet: Regular Follow Up Appointments: Provider,Not a Local [Primary Care Provider] - Edelmira Edward CNM [Certified Nurse Financial Planner] - Forms: [facility] [employer] Info Instructions DS:Data Additional Comments Additional comments: Hemoglobin 10.5
[2023-05-16] MEDS: ONDANSETRON ODT 4 MG TAB PO (13:13)
== END 2023-05-16 15:15 | disposition home or self-care (01) | DRG 787 ==
PROVIDERS: Obstetrics & Gynecology; Admitting Provider Advanced Practice Midwife; Visit Provider Advanced Practice Midwife
PROC: (CPT 59514; principal; 2023-05-13 22:15)
DX: O36.5930 Maternal care for other known or suspected poor fetal growth, third trimester, not applicable or unspecified (principal); F33.9 Major depressive disorder, recurrent, unspecified; O76 Abnormality in fetal heart rate and rhythm complicating labor and delivery; G89.18 Other acute postprocedural pain; O99.344 Other mental disorders complicating childbirth; F41.9 Anxiety disorder, unspecified; F43.10 Post-traumatic stress disorder, unspecified; Z37.0 Single live birth; Z3A.37 37 weeks gestation of pregnancy
CPT/HCPCS: 01961; 36415; 59200; 64488; 76942; 85018; 85025; 86850; 86900; 86901; 99140; A9270; C9290; J0131; J0665; J1885; J2274; J2371; J2405; J2590; J7120

== ENCOUNTER 2024-06-15 12:11 | Outpatient (CLI) | payer OTHER, BC, SELFPAY | END 2024-06-15 12:12 | disposition home or self-care (01) | PROVIDERS: PCP Family Medicine; Visit Provider Family Medicine | DX: M54.2 Cervicalgia (principal); M54.50 Low back pain, unspecified; Z13.228 Encounter for screening for other metabolic disorders; Z13.0 Encounter for screening for diseases of the blood and blood-forming organs and certain disorders involving the immune mechanism | CPT/HCPCS: 80048; 85025; 86038; 86140; 86431; 86812 ==